=== PATIENT | female | born 1945 | race Caucasian/White ===

== ENCOUNTER → 2016-07-04 | Outpatient (CLI) | payer MEDICARE ==
[~2016-07-04] MED LIST: /ZIAC5TA OR; ACET500C; ACIPHEX OR; ASPI81TA3; ASPI81TA85 PO; BONIVA OR; CALC12502; CALCCHW12 OR; CIPR500T19 OR; FEMARA OR; FISH100049 PO; FLAG500T OR; HYDR12.55 PO; LISI-542 PO; LOPI600T OR; METF500T4 OR; PERC5TAB6 PO; THERGRAN; VENL75TA2 OR; ZOCO40TA OR; calcium
--- NOTE | 2016-07-04 16:09 | REP ---
RIGHT BREAST MAMMOGRAM: Right breast mammogram performed in the MLO and CC projections. The patient has a history of left breast cancer and mastectomy. There is a family history of breast cancer in a maternal aunt. Scattered fibroglandular tissue is unchanged in the right breast. There is no new mass or architectural distortion. No new clustered microcalcifications are seen. IMPRESSION: ACR 1 negative mammogram right breast in this patient status post left mastectomy. Suggest followup mammogram in one year. BI-RADS/ACR category 1 mammogram. Negative. Routine annual screening mammography (for women over age 40). This mammogram was interpreted with the aid of an FDA-approved computer-aided detection system. The patient states she/he had a clinical breast exam in 04/2016. The patient letter being requested is M1
== END ==
LOC: M WHC 09:53
PROVIDERS: ATTEND Internal Medicine Medical Oncology
DX: Z12.31 Encounter for screening mammogram for malignant neoplasm of breast (principal); Z85.3 Personal history of malignant neoplasm of breast; Z08 Encounter for follow-up examination after completed treatment for malignant neoplasm

== ENCOUNTER → 2017-04-19 | Outpatient (CLI) | payer MEDICARE ==
[~2017-04-19] MED LIST changes: +GASTROGRAFIN SOLUTION 30ML (Q9963) As Ordered ONE; +ISOVUE-370 76% 100ML VIAL (Q9967) As Ordered ONE; +PERC5TAB12 PO; -PERC5TAB6 PO
--- NOTE | 2017-04-19 12:49 | REP ---
CT CHEST WITH IV CONTRAST: TECHNIQUE: Axial contrast enhanced images from the thoracic inlet to the upper abdomen using 100 mL Isovue 370 intravenous contrast material with multiplanar reformations. The lungs show no suspicious nodular opacity or area of consolidation. The patient has had a prior left mastectomy. There are multiple metallic clips in the left axillary region. No chest wall mass is seen. There is no mediastinal, hilar or chest wall lymphadenopathy. There is no pleural or pericardial effusion. There is no thoracic aortic aneurysm or dissection. The heart is normal in size. There is a small hiatal hernia. There are degenerative changes of the spine without compression fracture or definite bone lesion. Incidental note is made of a 5 mm nodule in the left lobe of the thyroid, of doubtful significance. IMPRESSION: No evidence of mass or adenopathy. Status post left mastectomy. Signed by Sarmad Mendes MD 04/19/2017 05:35 P
--- NOTE | 2017-04-19 13:43 | REP ---
CT ABDOMEN AND PELVIS WITH AND WITHOUT CONTRAST: TECHNIQUE: Axial noncontrast images through the abdomen followed by contrast-enhanced images through the abdomen and pelvis using 100 mL Isovue 370 intravenous contrast material, with coronal and sagittal reformations. There is a small hiatal hernia. Liver demonstrates no evidence of enhancing mass. Spleen, adrenals, pancreas, and kidneys appear normal. Several subcentimeter gallstones are seen in the dependent portion of the gallbladder without evidence of gallbladder wall edema. There is no abdominal aortic aneurysm with mild scattered atherosclerotic calcifications noted. There is on adenopathy. There is no free air or free fluid. There is no bowel wall thickening. There is no evidence of pelvic mass. There is sigmoid diverticulosis without acute diverticulitis. Urinary bladder is mildly distended and grossly unremarkable. There are degenerative changes of the spine. No bone lesions are seen of the visualized osseous structures. IMPRESSION: Small hiatal hernia. Several subcentimeter gallstones in the gallbladder. Sigmoid diverticulosis. No acute abnormality. No adenopathy or mass. No evidence of bone lesion. Signed by Sarmad Mendes MD 04/19/2017 05:35 P
--- NOTE | 2017-04-19 13:57 | REP ---
WHOLE BODY BONE SCAN: Following the intravenous administration of 20.2 mCi of technetium-99m MDP, patient's whole body is imaged in the anterior and posterior projections with additional oblique images of the thoracic and pelvic regions performed as well as lateral views of the calvarium, knees and feet. There is on compelling scintigraphic evidence of osseous metastases. Scattered arthritic uptake is visualized in the wrists, knees, and feet. Photopenic area in the region of the left knee is compatible with a metallic prosthesis. There is arthritic uptake of a mild degree in various portions of the spine. There is arthritic uptake at the sternoclavicular joints. Renal and bladder activity are seen. IMPRESSION: Scattered arthritic uptake without compelling scintigraphic evidence of osseous metastases. Signed by Sarmad Mendes MD 04/19/2017 05:35 P
== END ==
LOC: M RAD 10:27
PROVIDERS: ATTEND Nurse Practitioner Family
DX: C50.919 Malignant neoplasm of unspecified site of unspecified female breast (principal); M85.80 Other specified disorders of bone density and structure, unspecified site
CPT/HCPCS: 71260; 74178; 78306; A9503; Q9963; Q9967

== ENCOUNTER → 2017-05-21 | Outpatient (CLI) | payer MEDICARE ==
[~2017-05-21] MED LIST changes: -GASTROGRAFIN SOLUTION 30ML (Q9963) As Ordered ONE; -ISOVUE-370 76% 100ML VIAL (Q9967) As Ordered ONE
--- NOTE | 2017-05-21 16:10 | REP ---
Clinical: Cough. Comparison: 03/01/2007 . Technique: PA and lateral. Findings: The mediastinum and cardiac silhouette are stable. Chronic dextroconvex scoliosis is again appreciated and unchanged. Lung carrasquillo demonstrate chronic stable changes without acute consolidation, effusion, or pneumothorax. Evidence of prior left axillary node dissection. Old healed left rib fracture. Impression: 1. No acute cardiopulmonary process. Signed by Ervin Francis MD 05/21/2017 04:02 P
== END ==
LOC: M RAD 15:02
PROVIDERS: ATTEND Internal Medicine
DX: R05 Cough (principal)

== ENCOUNTER → 2017-07-05 | Outpatient (CLI) | payer MEDICARE | LOC: M WHC 10:46 | DX: Z12.31 Encounter for screening mammogram for malignant neoplasm of breast (principal); Z85.3 Personal history of malignant neoplasm of breast; Z08 Encounter for follow-up examination after completed treatment for malignant neoplasm | CPT/HCPCS: 77067 ==

== ENCOUNTER → 2018-03-19 | Outpatient (CLI) | payer MEDICARE | LOC: M RAD 10:20 | DX: M54.16 Radiculopathy, lumbar region (principal) | CPT/HCPCS: 72148 ==

== ENCOUNTER 2018-04-15 07:56 | Day surgery (SDC) | payer MEDICARE ==
[2018-04-15] MEDS: NS 1,000 ML IV (06:00)
[2018-04-15] MEDS ORDERED: PROPOFOL 200 MG/20 ML VIAL As Ordered ×2 (08:41)
[2018-04-15] MEDS ORDERED: LIDOCAINE 2% INJ 100 MG/5 ML SDV (FOR ANES.) As Ordered (08:41)
== END 2018-04-15 10:25 | disposition home or self-care (01) ==
LOC: M OPP 07:56
DX: Z12.11 Encounter for screening for malignant neoplasm of colon (principal); Z86.010 Personal history of colon polyps; K64.0 First degree hemorrhoids; K57.30 Diverticulosis of large intestine without perforation or abscess without bleeding; I10 Essential (primary) hypertension; E78.5 Hyperlipidemia, unspecified; E11.9 Type 2 diabetes mellitus without complications; K21.9 Gastro-esophageal reflux disease without esophagitis; R12 Heartburn; M19.90 Unspecified osteoarthritis, unspecified site; M85.80 Other specified disorders of bone density and structure, unspecified site; G25.81 Restless legs syndrome; G47.30 Sleep apnea, unspecified; R06.83 Snoring; Z85.3 Personal history of malignant neoplasm of breast; Z92.21 Personal history of antineoplastic chemotherapy; Z90.12 Acquired absence of left breast and nipple; Z87.09 Personal history of other diseases of the respiratory system; Z96.651 Presence of right artificial knee joint; Z87.891 Personal history of nicotine dependence; Z88.0 Allergy status to penicillin; Z88.2 Allergy status to sulfonamides; Z79.82 Long term (current) use of aspirin; Z79.899 Other long term (current) drug therapy
CPT/HCPCS: G0105

== ENCOUNTER → 2018-05-03 | Outpatient (CLI) | payer MEDICARE ==
[~2018-05-03] MED LIST changes: -/ZIAC5TA OR; -ACET500C; -ACIPHEX OR; -ASPI81TA3; -ASPI81TA85 PO; -BONIVA OR; -CALC12502; -CALCCHW12 OR; -CIPR500T19 OR; -FEMARA OR; -FISH100049 PO; -FLAG500T OR; -HYDR12.55 PO; +ISOVUE-370 76% 100ML VIAL (Q9967) As Ordered; -LISI-542 PO; -LOPI600T OR; -METF500T4 OR; -PERC5TAB12 PO; -THERGRAN; -VENL75TA2 OR; -ZOCO40TA OR; -calcium
== END ==
LOC: M RAD 09:54
DX: R05 Cough (principal); Z85.3 Personal history of malignant neoplasm of breast
CPT/HCPCS: Q9967

== ENCOUNTER → 2018-07-08 | Outpatient (CLI) | payer MEDICARE ==
[~2018-07-08] MED LIST changes: +/ZIAC5TA OR; +ACET500C; +ACIPHEX OR; +ASPI81TA3; +ASPI81TA85 PO; +BONIVA OR; +CALC12502; +CALCCHW12 OR; +CIPR500T19 OR; +FEMARA OR; +FISH100049 PO; +FLAG500T OR; +HYDR12.55 PO; -ISOVUE-370 76% 100ML VIAL (Q9967) As Ordered; +LISI-542 PO; +LOPI600T OR; +METF500T4 OR; +PERC5TAB12 PO; +SINE25TA5 PO; +STOO100C PO; +THERGRAN; +VENL75TA2 OR; +ZOCO40TA OR; +calcium
--- NOTE | 2018-07-08 14:00 | REPMRS ---
Patient History The patient states she had a clinical breast exam in 05/19 Family history of breast cancer at age 72 in maternal aunt. Malignant mastectomy of the left breast, 2001. Chemotherapy. Took hormonal contraceptives for 1 year. Took tamoxifen for 5 years. Took unspecified hormones for 28 years. Digital Woman Screen Mammo: July 08, 2018 - Exam #: [id number] Bilateral CC and MLO view(s) were taken. Technologist: Adrianne Red, Technologist Prior study comparison: July 05, 2017, digital woman screen mammo performed at [facility] [employer] [facility]. July 04, 2016, digital woman screen mammo performed at [facility] [facility]. July 01, 2015, digital woman screen mammo performed at [facility] [employer] [facility]. FINDINGS: There are scattered fibroglandular densities. There has been no change in the appearance of the right breast parenchyma in the interval since the prior examination. No mass, architectural distortion, or microcalcific cluster has developed. No suspicious finding. 3-D tomosynthesis shows no additional findings. Assessment: BI-RADS/ACR category 2 mammogram. Benign finding(s). Recommendation Routine screening mammogram of the right breast in 1 year. This mammogram was interpreted with the aid of an FDA-approved computer-aided dectection system. Electronically Signed By: Elijah Hackett MD 07/08/18 1400
== END ==
LOC: M WHC 12:48
PROVIDERS: ATTEND Internal Medicine Medical Oncology
DX: Z12.31 Encounter for screening mammogram for malignant neoplasm of breast (principal); Z85.3 Personal history of malignant neoplasm of breast; Z90.12 Acquired absence of left breast and nipple; Z92.21 Personal history of antineoplastic chemotherapy; Z80.3 Family history of malignant neoplasm of breast

== ENCOUNTER → 2019-05-06 | Outpatient (REF) | payer MEDICARE ==
[~2019-05-06] MED LIST changes: -/ZIAC5TA OR; +MM S100C PO; -STOO100C PO; +ZIAC1TAB OR
[2019-05-06 12:11] LABS: BASO % 0.5 % (0.0-1.0); EOS # 0.2 10^3/uL (0.0-0.5); EOS % 4.5 % (0.0-3.0); HEMATOCRIT 44.9 % (36.0-47.0); HEMOGLOBIN 14.7 g/dl (12.0-15.5); LYMPH # 1.3 10^3/uL (1.5-5.0); LYMPH % 32.4 % (24.0-44.0); MEAN CORPUSCULAR HEMOGLOBIN 30.4 pg (27.0-33.0); MEAN CORPUSCULAR HGB CONC 32.7 g/dl (32.0-36.5); MONO # 0.3 10^3/uL (0.0-0.8); MONO % 7.5 % (0.0-5.0); NEUTROPHILS # 2.2 10^3/uL (1.5-8.5); NEUTROPHILS % 54.9 % (36.0-66.0); PLATELET COUNT, AUTOMATED 209 10^3/uL (150-450); RED BLOOD COUNT 4.83 10^6/uL (4.00-5.40)
[2019-05-06 12:39] LABS: ERYTHROCYTE SEDIMENTATION RATE 20 mm/hr (0-30)
[2019-05-08 00:06] LABS: Lyme Disease IgG/IgM Antibodie <0.91 ISR (0.00-0.90); Lyme Disease IgM Ab Quantitati <0.80 index (0.00-0.79)
== END ==
LOC: M LABDRAW1 11:48
PROVIDERS: ATTEND Orthopaedic Surgery
DX: M16.11 Unilateral primary osteoarthritis, right hip (principal); Z79.899 Other long term (current) drug therapy

== ENCOUNTER → 2019-07-03 | Outpatient (CLI) | payer MEDICARE ==
[2019-07-03 09:31] LABS: HEMATOCRIT 43.6 % (36.0-47.0); HEMOGLOBIN 14.6 g/dl (12.0-15.5); MEAN CORPUSCULAR HEMOGLOBIN 31.1 pg (27.0-33.0); MEAN CORPUSCULAR HGB CONC 33.5 g/dl (32.0-36.5); PLATELET COUNT, AUTOMATED 183 10^3/uL (150-450); RED BLOOD COUNT 4.69 10^6/uL (4.00-5.40); WHITE BLOOD COUNT 4.8 10^3/uL (4.0-10.0)
[2019-07-03 09:42] LABS: INR 1.1; PROTHROMBIN TIME 13.9 SECONDS (11.8-14.0)
--- NOTE | 2019-07-03 09:56 | REP ---
Two-view chest: 07/03/2019. Indication: Preoperative assessment. Comparison: CT chest dated 05/03/2018 and plain film chest dated 05/21/2017. Findings: There is no air space consolidation, pleural effusion or pneumothorax. Left axillary surgical clips are noted. Scoliosis and degenerative sequelae of the thoracic spine are present. The cardiomediastinal silhouette is unremarkable. Glenohumeral degenerative sequelae are present more pronounced on the right. Chronic left sixth rib fracture is present. Impression: No acute cardiopulmonary process. Electronically Signed by Moses Heller DO 07/03/2019 09:47 A
[2019-07-03 10:07] LABS: ALBUMIN 4.2 GM/DL (3.2-5.2); ALT/SGPT 60 U/L (12-78); BILIRUBIN,TOTAL 0.7 MG/DL (0.2-1.0); BLOOD UREA NITROGEN 13 MG/DL (7-18); CALCIUM LEVEL 9.2 MG/DL (8.8-10.2); CARBON DIOXIDE LEVEL 27 MEQ/L (21-32); CHLORIDE LEVEL 104 MEQ/L (98-107); CREATININE FOR GFR 0.61 MG/DL (0.55-1.30); GLOMERULAR FILTRATION RATE > 60.0 (>39); GLUCOSE, FASTING 140 MG/DL (70-100); POTASSIUM SERUM 4.4 MEQ/L (3.5-5.1); SODIUM LEVEL 139 MEQ/L (136-145); TOTAL PROTEIN 7.7 GM/DL (6.4-8.2)
[2019-07-03 10:20] LABS: ERYTHROCYTE SEDIMENTATION RATE 17 mm/hr (0-30)
--- NOTE | 2019-07-03 20:38 | ECGEPIP ---
[facility] Test Date: 2019-07-03 Pat Name: JAMES KOCH Department: Room: - Gender: Female Proced Tech: KARRI : 1945 Requested By: Rachel Gutierrez @ [facility] Order Number: [id number] Reading MD: Gui Walker Measurements Intervals [place] Rate: 77 P: 61 WY: 177 QRS: -4 QRSD: 150 T: 28 QT: 415 QTc: 471 Interpretive Statements Normal sinus rhythm Right bundle branch block No significant change when compared to prior tracing of 07/30/2014 Electronically Signed on 07-03-2019 20:38:01 EST by Gui Walker
== END ==
LOC: M LAB 08:50
PROVIDERS: ATTEND Orthopaedic Surgery
DX: Z01.818 Encounter for other preprocedural examination (principal); M16.11 Unilateral primary osteoarthritis, right hip; I45.10 Unspecified right bundle-branch block; Z88.0 Allergy status to penicillin; Z88.2 Allergy status to sulfonamides

== ENCOUNTER 2019-07-18 05:53 | Inpatient (IN) | payer MEDICARE ==
--- NOTE | 2019-07-14 16:05 | HPE ---
DATE OF ADMISSION: 07/18/2019 HISTORY OF PRESENT ILLNESS: Mrs. Douglas is a pleasant 74-year-old female with continuing symptomatic right hip osteoarthritis. She has consented for a right total hip arthroplasty per Dr. Matt Orellana. Medical optimization per Dr. Deleon. X-rays are consistent with advanced osteoarthritis. ALLERGIES: 1. PENICILLIN in childhood caused hives. 2. SULFA DRUGS. MEDICATION LIST: Includes: - gabapentin 100 mg - tizanidine HCl 2 mg - Crestor 5 mg - lisinopril 5 mg - carbidopa levodopa 25-100 mg - Zyrtec allergy 10 mg - benazepril HCl/hydrochlorothiazide 10-12.5 mg MEDICAL PROBLEM LIST: 1. Essential hypertension. 2. Hypercholesteremia. 3. Gastroesophageal reflux disease. 4. Type 2 diabetes. 5. Myelitis. 6. Obstructive sleep apnea. PAST SURGICAL HISTORY: Total hysterectomy, mastectomy, knee replacement, carpal tunnel release, right shoulder rotator cuff repair, right hand top wrist cyst removed, meniscal repair in 2008, carpal tunnel surgery left and right 2010. FAMILY HISTORY: Heart disease, arthritis, hypertension, hypercholesteremia, thyroid disease. SOCIAL HISTORY: Former smoker. Rarely consumes alcohol. Denies illicit drugs. REVIEW OF SYSTEMS: Denies chest pain, shortness of breath, dyspnea on exertion, fever, chills, malaise, upper respiratory or urinary tract symptoms. LABORATORY DATA: Results from 05/06/2019 by [facility]: Monocyte percentage and eosinophil percentage 7.5 and 4.5 respectively. Lymph number 1.3. As of 07/04/2019, glucose fasting 140, AST/SGOT 45. Alkaline phosphatase 121. Chest x-ray result [facility] service date 07/03/2019: No acute cardiopulmonary process as read by Dr. Heller. EKG as read by Dr. Gui Walker: Normal sinus rhythm, right bundle branch block. No significant change from prior tracing dated 08/10/2014. That is the comparison study. PHYSICAL EXAMINATION: She is a pleasant well-developed, well-nourished, overweight female in no acute distress, alert and oriented times three. Mood and affect are appropriate. Height is 52 inches, weight 190.2, temperature 98.4, blood pressure 126/78, pulse 66, respirations 16. She is ambulating without overt antalgia, assistance or favoring. Right hip range of motion is limited and irritable particularly in internal range of motion. Bowels are soft, nontender times four. No mass. Chest rises symmetrically. Regular rate and rhythm. Lungs: Clear. Neck: Supple. Negative jugular venous distention (JVD) or bruits. Normocephalic. IMPRESSION: 1. Symptomatic right hip osteoarthritis. 2. The patient consented for a right total hip arthroplasty per Dr. Matt Orellana. 3. Medical optimization per Dr. Deleon. 4. On-call to operating room (OR) 2 grams IV Kefzol in OR. 5. Sequential compression device (SCD) and thromboembolic-deterrent stockings (TEDS) in OR.
[~2019-07-18] VITALS: Ht 157.5 cm; Wt 87.0 kg
[2019-07-18] VITALS (7 sets, daily range): BP systolic 101–117; BP diastolic 61–64
[~2019-07-18 05:53] MED LIST changes: +ACET-897 PO
[2019-07-18] MEDS ORDERED: LIDOCAINE 1% MDV 20ML VIAL SQ PRN (06:00)
[2019-07-18] MEDS ORDERED: ACETAMINOPHEN 500 MG TAB PO ONE (06:00)
[2019-07-18] MEDS ORDERED: VANCOMYCIN HCL 1,000 MG, VIAL MATE ADAPTER 1 EACH in D5W 250 ML IV ONE (06:00)
[2019-07-18] MEDS ORDERED: LR 1,000 ML IV ONE (06:00)
[2019-07-18] MEDS ORDERED: EPINEPHrine INJ 1 MG/ML 1ML VIAL As Ordered ONE (06:51)
[2019-07-18] MEDS ORDERED: CLINDAMYCIN INJ 900MG/6ML VIAL As Ordered ONE (06:52)
[2019-07-18] MEDS ORDERED: CHLOROPROCAINE 2 % INJ PRES.FREE 20 ML VIAL (J2400) As Ordered ONE ×2 (06:56→08:15)
[2019-07-18] MEDS ORDERED: ONDANSETRON 4MG/2ML VIAL (J2405) As Ordered ONE (06:56)
[2019-07-18] MEDS ORDERED: fentaNYL 100 MCG/2 ML INJECTION (J3010) As Ordered ONE ×2 (06:56→07:04)
[2019-07-18] MEDS ORDERED: propofoL 500 MG/50 ML VIAL As Ordered ONE (07:04)
[2019-07-18] MEDS ORDERED: LIDOCAINE 2% INJ 100 MG/5 ML SDV (FOR ANES.) As Ordered ONE (07:04)
[2019-07-18] MEDS ORDERED: ROCURONIUM BROMIDE 50 MG/5 ML VIAL As Ordered ONE (07:04)
[2019-07-18] MEDS ORDERED: BUPIVACAINE HCL 0.5% 30 ML VIAL As Ordered ONE (08:14)
[2019-07-18] MEDS ORDERED: dexameTHASONE 4 MG/ML 1ML VIAL (J1100) As Ordered ONE (08:14)
[2019-07-18] MEDS ORDERED: ePHEDrine SULFATE 25 MG/5 ML(5MG/ML) SYRINGE As Ordered ONE (08:15)
[2019-07-18] MEDS ORDERED: PHENYLephrine HCL 500 MCG/5 ML (100MCG/ML) SYRINGE (J2370) As Ordered ONE (08:15)
[2019-07-18] MEDS ORDERED: ONDANSETRON 4MG/2ML VIAL (J2405) IV PRN ×2 (10:15→10:30)
[2019-07-18] MEDS ORDERED: oxyCODONE 5MG TAB PO PRN (10:30)
[2019-07-18] MEDS ORDERED: fentaNYL 100 MCG/2 ML INJECTION (J3010) IV PRN (10:30)
[2019-07-18] MEDS ORDERED: MORPHINE 2 MG/ML 1ML VIAL (J2270) IV PRN (10:30)
[2019-07-18] MEDS ORDERED: METOCLOPRAMIDE INJ 10MG/2ML VIAL (J2765) IV PRN (10:30)
[2019-07-18] MEDS ORDERED: LR 1,000 ML IV SCH (10:30)
--- NOTE | 2019-07-18 11:04 | REP ---
RIGHT HIP, TWO VIEWS: Two views of the right hip performed. A total hip prosthesis is in good position. Osseous structures are intact and well aligned. Metallic skin loren are seen laterally. Electronically Signed by Sarmad Mendes MD 07/23/2019 09:38 A
[2019-07-18] MEDS ORDERED: HYDROMORPHONE HCL 0.5 MG/ 0.5 ML SYRINGE (J1170 PER 1) IV PRN (13:00)
[2019-07-18] MEDS: HYDROMORPHONE HCL 0.5 MG/ 0.5 ML SYRINGE (J1170 PER 1) IV PRN ×2 (13:20→20:33)
[2019-07-18] MEDS: LR 1,000 ML IV SCH ×2 (13:36→23:20)
--- NOTE | 2019-07-18 13:58 | CR.PDOC ---
General Date of Consultation: Jul 18, 2019 Consultation CHIEF COMPLAINT: R. hip pain HISTORY OF PRESENT ILLNESS: Patient is 74F with PMH R. hip OA, HTN, DM Type, RLS and BORIS admitted for R. hip arthroplasty with orthopedic surgery. Patient reported having pain in her R. hip for about 2 years that had failed conservative management now admitted for surgery. She reported having multiple orthopedic surgeries in the past and has had pain in the back/leg and hips for a long time before figuring out that the problem lies in her R. hip. She currently appears comfortable, reports some mild pain in her R. hip after getting pain medications otherwise denies any other complaints including chest pain, SOB, fever, chills, nausea, vomiting. PAST MEDICAL HISTORY: Refer to HPI PAST SURGICAL HISTORY: Hysterectomy Left mastectomy Left knee replacement Bilateral carpal tunnel release SOCIAL HISTORY: Former smoker. Social alcohol use and denies any drug use. FAMILY HISTORY: Father- CAD Mother- HTN, OA ALLERGIES: Please see below. REVIEW OF SYSTEMS: 10 point review of system negative except as stated in HPI HOME MEDICATIONS: Please see below. PHYSICAL EXAMINATION: General: Alert Eyes: Normal sclera, EOMI HENT: Atraumatic Cardiovascular: Normal rate Pulmonary: Clear to auscultation b/l, no wheezing GI: Soft, nontender, nondistended Skin: Warm and dry MSK: R. hip tenderness with overlying bandage c/d/i. Neuro: CN grossly intact. No focal deficits. Psych: oriented x 3 LABORATORY DATA: See below. IMAGING: R. hip XR- A total hip prosthesis is in good position. Osseous structures are intact and well aligned. Metallic skin loren are seen laterally. MICROBIOLOGY: Please see below. ASSESSMENT AND PLAN: 1. R. hip pain s/p arthroplasty - Persistent pain not improve with conservative measures. - c/w pain control. Orthopedic surgery following. - PT eval and treat. - Routine post op care. 2. DM - has been off of metformin. - Will monitor ACHS blood sugar with sliding scale coverage. - Patient fairly adverse to insulin, will monitor today and possibly d/c in AM if no significant spike in BS noted. - Consistent carbohydrate diet. 3. HTN - resume home meds. 4. BORIS - Not on home CPAP. 5. RLS - c/w sinemet Vital Signs/I&O Vital Signs Date Time Temp Pulse Resp B/P (MAP) Pulse Ox O2 Delivery O2 Flow Rate FiO2 07/18/19 13:30 18 07/18/19 13:20 Room Air 07/18/19 11:14 97.6 74 117/62 (80) 98 Laboratory Data Labs 24H Laboratory Tests 2 07/18/19 07:00: Bedside Glucose (Misc Panel) 144H 07/18/19 09:59: Bedside Glucose (Misc Panel) 154H Allergies Coded Allergies: Penicillins (Verified Allergy, Intermediate, Hives, 07/18/19) Sulfa (Sulfonamide Antibiotics) (Verified Allergy, Intermediate, Hives, 07/18/19) Home Medications Scheduled Carbidopa/Levodopa (Sinemet 25-100 mg Tablet) 1 Tab Tab, 1 TAB PO QHS, (Reported) Hydrochlorothiazide (Hydrochlorothiazide) 12.5 Mg Tab, 12.5 MG PO DAILY, (Reported) Lisinopril (Lisinopril) 5 Mg Tab, 5 MG PO DAILY, (Reported) Scheduled PRN Acetaminophen (Tylenol Extra Strength) 500 Mg Tablet, 1,000 MG PO TIDP PRN for PAIN, (Reported) IGLESIA WEBB MD Jul 18, 2019 13:58
[2019-07-18] MEDS ORDERED: PERCOCET 5MG/325MG TAB PO PRN (14:15)
[2019-07-18] MEDS: PERCOCET 5MG/325MG TAB PO PRN ×2 (14:30→21:17)
[2019-07-18] MEDS ORDERED: GLUCOSE 4 GM CHEW TABLET PO PRN (14:45)
[2019-07-18] MEDS ORDERED: DEXTROSE 50% 50 ML SYRINGE IV PRN (14:45)
[2019-07-18] MEDS ORDERED: GLUCAGON FOR INJ 1 MG VIAL (J1610) SC PRN (14:45)
[2019-07-18] MEDS: hydroCHLOROthiazide 12.5 MG CAPSULE PO SCH (15:23)
[2019-07-18] MEDS: lisinopriL 5 MG TAB PO SCH (15:23)
[2019-07-18] MEDS: VANCOMYCIN HCL 1,000 MG, VIAL MATE ADAPTER 1 EACH in D5W 250 ML IV SCH (17:51)
[2019-07-18] MEDS: HumaLOG INSULIN (NovoLOG) PER UNIT SC SCH (17:52)
--- NOTE | 2019-07-18 19:36 | RO ---
DATE OF PROCEDURE: 07/18/2019 PREPROCEDURE DIAGNOSIS: Right hip degenerative arthritis. POSTPROCEDURE DIAGNOSIS: Right hip degenerative arthritis. PROCEDURE: Right total hip arthroplasty using a size 4 Hoke stem with a 1.5 neck, 32 mm ball with a 48 mm cup and a 32 mm neutral polyethylene liner. SURGEON: Rachel Orellana ABRASIVE WORKER: Mr. Adiel Manriquez ANESTHESIA: Spinal. COMPLICATIONS: None. SPECIMENS: Femoral head. ESTIMATED BLOOD LOSS: 200 mL. DESCRIPTION OF PROCEDURE: Antibiotics were given intravenously preoperatively, successful spinal anesthetic was induced. She was placed in the lateral decubitus position with a [place] hip positioner utilized, down leg well padded, especially the peroneal nerve, axillary roll utilized. Her right hip area was then carefully prepped and draped in the usual sterile fashion and after appropriate time out, a longitudinal incision was made for a direct anterolateral approach to the hip. Bovie cautery was used to coagulate crossing vessels down to the tensor fascia, which was then divided in line with the skin incision. We split the gluteus medius, anterior one-third, posterior two-third junction, carefully dissected down through the underlying gluteus minimus and anterior capsule, carefully dissecting anteriorly until we could dislocate the hip anteriorly. Piriformis fossa was identified, starter reamer placed, followed by the canal finding reamer, then the lateralizing reamer. Then, we reamed up to a size 4 and up to a size 5. Femoral neck osteotomy was performed using the femoral neck template guide, and then we began broaching. The broaching stopped at 4; it was nice and tight against the medial calcar, did not feel a 5 could be placed. We then exposed the acetabulum. We did a labral excision 360 degrees. Began reaming, starting at 45, advanced up to 47, 48 trial actually fit nicely; she had good bleeding bone, we were down to the medial teardrop. We copiously irrigated, the trial fit nicely at 48; thus, I went for the 48 mm cup. It was placed using the extramedullary guide to estimate our version in abduction, it fit nicely. Central hole eliminator was placed. We placed the polyethylene, made sure it was seated properly, and then exposed the proximal femur once again, placed the broach once again after irrigating copiously down the femoral canal. The +1.5 neck with a 32 ball was used to trial, and she had excellent stability with flexion internal rotation and extension external rotation, and minimal soft tissue telescoping. Thus, at this point, I did not think any other size was needed. I removed the trial components, copiously irrigated out the femoral canal, placed the real #4 Hoke stem, dried the trunnion, placed the 32 x 1.5 ball, and then reduced the hip. We copiously irrigated again and then closed the anterior hip capsule and gluteus minimus back anatomically with interrupted #1 PDS sutures, gluteus medius was closed back anatomically with interrupted #1 PDS sutures, tensor fascia was closed with a combination of #1 PDS sutures and a running #1 single armed Stratafix, irrigating between layers. A second suture was placed in the deep soft tissues because of the depth of the soft tissue envelope. She was quite morbidly obese. We then closed the deep subdermal tissues with interrupted #2-0 PDS sutures, skin was closed with loren, covered by an Optifoam and then she was turned supine and transferred to the recovery room in stable condition. There were no intraoperative complications. Mr. Adiel Manriquez was critical to the success of this difficult procedure by helping with appropriate soft tissue retraction, helped to position the patient, helped to dislocate and relocate the hip several times throughout the surgery, helped to close the wound, prepare the patient for surgery amongst many other tasks to allow me to perform the operation smoothly, efficiently and safely.
[2019-07-18] MEDS ORDERED: HumaLOG INSULIN (NovoLOG) PER UNIT SC SCH (21:00)
[2019-07-18] MEDS ORDERED: SINEMET 25-100 MG TAB PO SCH (21:00)
[2019-07-19] MEDS: PERCOCET 5MG/325MG TAB PO PRN ×3 (01:20→10:37)
[2019-07-19 02:15] VITALS: BP 98/59
[2019-07-19] MEDS ORDERED: PERC5TAB12 PO (06:19)
[2019-07-19] MEDS ORDERED: XARE10TA PO (06:19)
[2019-07-19] MEDS: VANCOMYCIN HCL 1,000 MG, VIAL MATE ADAPTER 1 EACH in D5W 250 ML IV SCH (06:28)
[2019-07-19 06:37] VITALS: BP 107/67
[2019-07-19 06:39] LABS: HEMATOCRIT 37.2 % (36.0-47.0); HEMOGLOBIN 12.4 g/dl (12.0-15.5); MEAN CORPUSCULAR HEMOGLOBIN 31.3 pg (27.0-33.0); MEAN CORPUSCULAR HGB CONC 33.3 g/dl (32.0-36.5); MEAN CORPUSCULAR VOLUME 93.9 fl (80.0-96.0); PLATELET COUNT, AUTOMATED 175 10^3/uL (150-450); RED BLOOD COUNT 3.96 10^6/uL (4.00-5.40); WHITE BLOOD COUNT 8.8 10^3/uL (4.0-10.0)
[2019-07-19 06:53] LABS: INR 1.1; PROTHROMBIN TIME 13.9 SECONDS (11.8-14.0)
[2019-07-19] MEDS: hydroCHLOROthiazide 12.5 MG CAPSULE PO SCH (08:31)
[2019-07-19 08:32] VITALS: BP 118/68
[2019-07-19] MEDS: HumaLOG INSULIN (NovoLOG) PER UNIT SC SCH (08:32)
[2019-07-19] MEDS: lisinopriL 5 MG TAB PO SCH (09:00)
[2019-07-19] MEDS ORDERED: MOM 30ML SUSPENSION UDC PO SCH (09:00)
[2019-07-19] MEDS ORDERED: MIRALAX *UNIT DOSE* 17GM PACKET PO SCH (09:00)
--- NOTE | 2019-07-19 10:13 | IPNPDOC ---
Date Seen The patient was seen on 07/19/19. Progress Note SUBJECTIVE: Patient found lying comfortably in bed. States that she does not have much pain until she moves around. Denies any other complaints apart from pain in her R. hip with movement. PT assess for discharge today. OBJECTIVE PHYSICAL EXAMINATION: VITAL SIGNS: Please see below. General: Alert Eyes: Normal sclera, EOMI HENT: Atraumatic Cardiovascular: Normal rate Pulmonary: Clear to auscultation b/l, no wheezing GI: Soft, nontender, nondistended Skin: Warm and dry MSK: R. hip tenderness with overlying bandage c/d/i. Neuro: CN grossly intact. No focal deficits. Psych: oriented x 3 LABORATORY DATA, IMAGING STUDIES, MICROBIOLOGY: Please see below. ASSESSMENT AND PLAN: 1. R. hip pain s/p arthroplasty - Persistent pain not improve with conservative measures. - c/w pain control. Orthopedic surgery following. - PT eval and treat. Assess for discharge today. 2. DM - has been off of metformin. - ACHS coverage for hyperglycemia if needed. - Consistent carbohydrate diet. 3. HTN - resume home meds. 4. BORIS - Not on home CPAP. 5. RLS - c/w sinemet VS, I&O, 24H, Fishbone Vital Signs/I&O Vital Signs Date Time Temp Pulse Resp B/P (MAP) Pulse Ox O2 Delivery O2 Flow Rate FiO2 07/19/19 08:32 75 15 118/68 98 Room Air 07/19/19 06:37 97.5 I&O- Last 24 Hours up to 6 AM 07/19/19 06:00 Intake Total 4666 ml Output Total 3050 ml Balance 1616 ml Laboratory Data 24H LABS Laboratory Tests 2 07/18/19 17:09: Bedside Glucose (Misc Panel) 167H 07/18/19 20:31: Bedside Glucose (Misc Panel) 161H 07/19/19 06:19: Nucleated Red Blood Cells % (auto) 0.0, Prothrombin Time 13.9, Prothromb Time International Ratio 1.10 07/19/19 07:41: Bedside Glucose (Misc Panel) 159H CBC/BMP Laboratory Tests 07/19/19 06:19 IGLESIA WEBB MD Jul 19, 2019 10:13
[2019-07-19] MEDS ORDERED: RIVAROXABAN 10 MG TAB (XARELTO) PO ONE (18:00)
[2019-07-19] MEDS ORDERED: RIVAROXABAN 10 MG TAB (XARELTO) PO SCH (18:00)
--- NOTE | 2019-07-22 14:54 | DSES ---
DATE OF ADMISSION: 07/18/2019 DATE OF DISCHARGE: 07/19/2019 ATTENDING PHYSICIAN: Dr. Matt Orellana ADMISSION DIAGNOSIS: Right hip degenerative arthritis. OTHER DIAGNOSES: Hypertension. Hyperlipidemia. Gastroesophageal reflux disease. Diabetes. Obstructive sleep apnea. DISCHARGE DIAGNOSIS: Right hip degenerative arthritis status post right total hip arthroplasty. HISTORY: The patient is a 74-year-old female that had progressively worsening right hip pain and stiffness. She failed to improve with conservative measures. She continued to have symptoms with weightbearing activities and activities of daily living. She consented for an elective right total hip arthroplasty with Dr. Orellana for her continued symptoms. OPERATION PERFORMED: Right total hip arthroplasty. HOSPITAL COURSE: The patient underwent a right total hip arthroplasty under spinal anesthesia which was uneventful. Her hospital course was without complication and she was up with physical therapy per their protocol, weightbearing as tolerated on the right lower extremity. The patient was discharged on oral pain medications and will resume her preoperative medications and diet. The patient will use her thromboembolic deterrent stockings and take her anticoagulant postoperatively to prevent deep venous thrombosis. The patient will followup in our office in 12-14 days for wound check and staple removal. She is encouraged to contact our office sooner if there is any increase in pain, redness, drainage, numbness or tingling in the extremity, fever greater than 101 degrees or any other concerns. Please see medical record for additional details.
== END 2019-07-19 11:50 | disposition home or self-care (01) | DRG 470 ==
LOC: M OR 05:53 → M MS5PR 11:05
PROVIDERS: ADMIT Orthopaedic Surgery; ATTEND Orthopaedic Surgery
PROC: 0SR90JA Replacement of Right Hip Joint with Synthetic Substitute, Uncemented, Open Approach (ICD-10-PCS; principal; 2019-07-18 07:30)
DX: M16.11 Unilateral primary osteoarthritis, right hip (principal); I10 Essential (primary) hypertension; E11.9 Type 2 diabetes mellitus without complications; Z88.0 Allergy status to penicillin; Z88.2 Allergy status to sulfonamides; K21.9 Gastro-esophageal reflux disease without esophagitis; G47.33 Obstructive sleep apnea (adult) (pediatric); Z79.899 Other long term (current) drug therapy; E78.00 Pure hypercholesterolemia, unspecified; Z87.891 Personal history of nicotine dependence; I45.10 Unspecified right bundle-branch block; G25.81 Restless legs syndrome; Z96.651 Presence of right artificial knee joint

== ENCOUNTER → 2019-08-25 | Outpatient (CLI) | payer MEDICARE ==
[~2019-08-25] MED LIST changes: +XARE10TA PO
--- NOTE | 2019-08-25 14:00 | REPMRS ---
Patient History The patient states she has not had a clinical breast exam in over a year. Family history of breast cancer at age 70 in maternal aunt. Malignant mastectomy of the left breast, 2001. Chemotherapy. Took hormonal contraceptives for 1 year. Took tamoxifen for 5 years. Took unspecified hormones for 28 years. Digital Woman Screen Mammo: August 25, 2019 - Exam #: [id number] Bilateral CC and MLO view(s) were taken. Technologist: Ana Nava, Technologist Prior study comparison: July 08, 2018, bilateral digital woman screen mammo performed at [facility]. July 05, 2017, digital woman screen mammo performed at [facility]. July 04, 2016, digital woman screen mammo performed at [facility]. FINDINGS: There are scattered fibroglandular densities. There has been no change in the appearance of the right breast parenchyma in the interval since the prior examination. No mass, architectural distortion, or microcalcific grouping has developed. No suspicious finding. 3-D tomosynthesis shows no additional findings. Assessment: BI-RADS/ACR category 2 mammogram. Benign Findings. Recommendation Routine screening mammogram of the right breast in 1 year. This mammogram was interpreted with the aid of an FDA-approved computer-aided dectection system. Electronically Signed By: Elijah Hackett MD 08/25/19 [id number]
== END ==
LOC: M WHC 12:38
PROVIDERS: ATTEND Internal Medicine
DX: Z12.31 Encounter for screening mammogram for malignant neoplasm of breast (principal); Z90.12 Acquired absence of left breast and nipple; Z85.3 Personal history of malignant neoplasm of breast; Z92.21 Personal history of antineoplastic chemotherapy; Z92.29 Personal history of other drug therapy

== ENCOUNTER → 2020-08-26 | Outpatient (CLI) | payer MEDICARE ==
[~2020-08-26] MED LIST changes: -ASPI81TA85 PO; +ASPI81TA86 PO; -LISI-542 PO; +LISI-898 PO
--- NOTE | 2020-08-26 13:09 | REPMRS ---
Patient History The patient states she has not had a clinical breast exam in over a year. Family history of breast cancer at age 70 in maternal aunt. Malignant mastectomy of the left breast, 2001. Chemotherapy. Took hormonal contraceptives for 1 year. Took tamoxifen for 5 years. Took unspecified hormones for 28 years. Digital Woman Screen Mammo: August 26, 2020 - Exam #: [id number] Bilateral CC and MLO view(s) were taken. Technologist: RT Neo Prior study comparison: August 25, 2019, bilateral digital woman screen mammo performed at [facility]. July 08, 2018, bilateral digital woman screen mammo performed at [facility]. July 05, 2017, digital woman screen mammo performed at [facility]. FINDINGS: There are scattered fibroglandular densities. There has been no change in the appearance of the right breast parenchyma in the interval since the prior examination. No mass, architectural distortion, or microcalcific grouping has developed. No suspicious finding. 3-D tomosynthesis shows no additional findings. Assessment: BI-RADS/ACR category 2 mammogram. Benign Findings. Recommendation Routine screening mammogram of the right breast in 1 year. This mammogram was interpreted with the aid of an FDA-approved computer-aided dectection system. Electronically Signed By: Elijah Hackett MD 08/26/20 [id number]
== END ==
LOC: M WHC 12:12
PROVIDERS: ATTEND Internal Medicine
DX: Z12.31 Encounter for screening mammogram for malignant neoplasm of breast (principal); Z90.12 Acquired absence of left breast and nipple; Z92.21 Personal history of antineoplastic chemotherapy; Z85.3 Personal history of malignant neoplasm of breast

== ENCOUNTER → 2020-10-12 | Outpatient (CLI) | payer MEDICARE ==
[~2020-10-12] MED LIST changes: +CARB-89 PO; -SINE25TA5 PO
[2020-10-12 15:33] LABS: BASO % 0.8 % (0.0-1.0); EOS # 0.2 10^3/uL (0.0-0.5); EOS % 2.9 % (0.0-3.0); HEMATOCRIT 46.6 % (36.0-47.0); HEMOGLOBIN 15.2 g/dl (12.0-15.5); LYMPH # 1.6 10^3/uL (1.5-5.0); LYMPH % 31.1 % (24.0-44.0); MEAN CORPUSCULAR HEMOGLOBIN 30.3 pg (27.0-33.0); MEAN CORPUSCULAR HGB CONC 32.6 g/dl (32.0-36.5); MONO # 0.4 10^3/uL (0.0-0.8); MONO % 6.7 % (2.0-8.0); NEUTROPHILS % 58.1 % (36.0-66.0); PLATELET COUNT, AUTOMATED 178 10^3/uL (150-450); RED BLOOD COUNT 5.01 10^6/uL (4.00-5.40); WHITE BLOOD COUNT 5.2 10^3/uL (4.0-10.0)
[2020-10-12 15:36] LABS: C REACTIVE PROTEIN QUANTITATIV < 0.30 MG/DL (0.00-0.30); RHEUMATOID FACTOR QUANT < 10.0 IU/ML (<15.0)
[2020-10-12 15:58] LABS: ERYTHROCYTE SEDIMENTATION RATE 10 mm/hr (0-30)
== END ==
LOC: M PLALAB 12:33
PROVIDERS: ATTEND Physician Assistant
DX: Z47.1 Aftercare following joint replacement surgery (principal); Z79.899 Other long term (current) drug therapy

== ENCOUNTER → 2021-02-24 | Outpatient (REF) | payer MEDICARE ==
[2021-02-24 17:39] LABS: APPEARANCE, URINE CLEAR (CLEAR); BACTERIA, URINE AUTO NEGATIVE (NEGATIVE); BILIRUBIN, URINE AUTO NEGATIVE (NEGATIVE); BLOOD, URINE BLOOD NEGATIVE (NEGATIVE); COLOR, URINE STRAW (YELLOW); GLUCOSE, URINE (UA) AUTO NEGATIVE (NEGATIVE); KETONE, URINE AUTO NEGATIVE (NEGATIVE); LEUKOCYTE ESTERASE, URINE AUTO 1+ (NEGATIVE); NITRITE, URINE AUTO NEGATIVE (NEGATIVE); PROTEIN, URINE AUTO NEGATIVE (NEGATIVE); RBC, URINE AUTO 0 /HPF (0-3); SPECIFIC GRAVITY URINE AUTO 1.004 (1.002-1.035); SQUAMOUS EPITHELIAL CELL UR AU 0 /HPF (0-6); UROBILINOGEN, URINE AUTO 0.2 mg/dL (0.0-2.0); WBC, URINE AUTO 2 /HPF (0-3)
[2021-02-24 17:40] LABS: HEMATOCRIT 45.3 % (36.0-47.0); HEMOGLOBIN 14.7 g/dl (12.0-15.5); LYMPH % 32.4 % (24.0-44.0); MEAN CORPUSCULAR HEMOGLOBIN 31.1 pg (27.0-33.0); MEAN CORPUSCULAR HGB CONC 32.5 g/dl (32.0-36.5); MEAN CORPUSCULAR VOLUME 95.8 fl (80.0-96.0); MONO % 7.3 % (2.0-8.0); NEUTROPHILS % 56.7 % (36.0-66.0); PLATELET COUNT, AUTOMATED 149 10^3/uL (150-450); RED BLOOD COUNT 4.73 10^6/uL (4.00-5.40); WHITE BLOOD COUNT 4.6 10^3/uL (4.0-10.0)
[2021-02-24 17:41] LABS: BASO % 0.4 % (0.0-1.0); EOS # 0.1 10^3/uL (0.0-0.5); EOS % 2.8 % (0.0-3.0); LYMPH # 1.5 10^3/uL (1.5-5.0); MONO # 0.3 10^3/uL (0.0-0.8); NEUTROPHILS # 2.6 10^3/uL (1.5-8.5)
[2021-02-24 18:02] LABS: CREATININE,RANDOM URINE < 13.0 MG/DL; TOTAL PROTEIN,RANDOM URINE < 5.0 MG/DL (0.0-12.0)
[2021-02-24 19:01] LABS: ALBUMIN 4.2 GM/DL (3.2-5.2); ALT/SGPT 59 U/L (12-78); BILIRUBIN,TOTAL 0.5 MG/DL (0.2-1.0); BLOOD UREA NITROGEN 14 MG/DL (7-18); CALCIUM LEVEL 9.2 MG/DL (8.8-10.2); CARBON DIOXIDE LEVEL 29 MEQ/L (21-32); CHLORIDE LEVEL 105 MEQ/L (98-107); COMPLEMENT C3 133 MG/DL (90-180); COMPLEMENT C4 16 MG/DL (10-40); CREATININE FOR GFR 0.56 MG/DL (0.55-1.30); GLOMERULAR FILTRATION RATE > 60.0 (>39); GLUCOSE, FASTING 130 MG/DL (70-100); POTASSIUM SERUM 3.8 MEQ/L (3.5-5.1); SODIUM LEVEL 140 MEQ/L (136-145); TOTAL PROTEIN 7.9 GM/DL (6.4-8.2)
[2021-02-24 19:44] LABS: ERYTHROCYTE SEDIMENTATION RATE 10 mm/hr (0-30)
== END ==
LOC: M SFHCRHEU 10:37
PROVIDERS: ATTEND Internal Medicine Rheumatology
DX: R76.8 Other specified abnormal immunological findings in serum (principal)

== ENCOUNTER → 2021-02-24 | Outpatient (CLI) | payer MEDICARE ==
--- NOTE | 2021-02-24 12:02 | REP ---
INDICATION: POLYMYALGIA RHEUMATICA COMPARISON: None. TECHNIQUE: AP, lateral, bilateral oblique views right and left foot. FINDINGS: Right foot demonstrates age-related osteopenia and relatively mild/moderate age-related degenerative changes. Lateral view best demonstrates small calcaneal heel spur along with calcifications to the plantar fascia and at the insertion of the Achilles tendon. No acute fracture or dislocation. Left foot demonstrates age-related osteopenia and relatively mild/moderate age-related degenerative changes. Lateral view best demonstrates small calcaneal heel spur along with calcifications to the plantar fascia. No acute fracture or dislocation. IMPRESSION: Osteopenia and relatively symmetric age-related degenerative changes. Calcifications along the bilateral plantar fascia. <Electronically signed by Ervin Francis > 02/24/21 [id number]
--- NOTE | 2021-02-24 12:06 | REP ---
INDICATION: POLYMYALGIA RHEUMATICA COMPARISON: None. TECHNIQUE: AP, lateral, bilateral oblique views right and left hand. FINDINGS: Left hand demonstrates generalized osteopenia and mild to early moderate osteoarthritic changes primarily involving the interphalangeal joints with periarticular sclerosis, marginal spurring and joint space narrowing. No acute fracture or dislocation. Right hand demonstrates generalized osteopenia and mild to moderate osteoarthritic changes including periarticular sclerosis, marginal spurring/osteophyte formation, and joint space narrowing. Findings most pronounced at the 1st and 2nd interphalangeal joints as well as the 1st metacarpophalangeal joint. No acute fracture or dislocation. IMPRESSION: Osteopenia and arthritic degenerative changes (right greater than left).. <Electronically signed by Ervin Francis > 02/24/21 0039
== END ==
LOC: M RAD 11:32
PROVIDERS: ATTEND Internal Medicine Rheumatology
DX: M19.041 Primary osteoarthritis, right hand (principal); M19.042 Primary osteoarthritis, left hand; M85.871 Other specified disorders of bone density and structure, right ankle and foot; M85.872 Other specified disorders of bone density and structure, left ankle and foot; M77.31 Calcaneal spur, right foot; M77.32 Calcaneal spur, left foot; M35.3 Polymyalgia rheumatica; R76.8 Other specified abnormal immunological findings in serum
CPT/HCPCS: 73130; 73630; 80053; 81001; 82570; 84156; 85025; 85652; 86140; 86160; G0463

== ENCOUNTER → 2021-09-16 | Outpatient (CLI) | payer MEDICARE ==
[~2021-09-16] MED LIST changes: -LISI-898 PO; +LISI5TAB11 PO
== END ==
LOC: M WHC 07:37
PROVIDERS: ATTEND Internal Medicine
DX: Z12.31 Encounter for screening mammogram for malignant neoplasm of breast (principal); M89.9 Disorder of bone, unspecified

== ENCOUNTER → 2022-02-14 | Outpatient (REF) | payer MEDICARE ==
[2022-02-14 12:24] LABS: APPEARANCE, URINE MANUAL HAZY (CLEAR); BILIRUBIN, URINE MANUAL NEGATIVE (NEGATIVE); BLOOD URINE MANUAL NEGATIVE (NEGATIVE); COLOR, URINE MANUAL YELLOW (YELLOW); GLUCOSE, URINE (UA) MANUAL NEGATIVE (NEGATIVE); KETONE, URINE MANUAL NEGATIVE (NEGATIVE); LEUKOCYTE ESTERASE, URINE MAN POSITIVE (NEGATIVE); NITRITE, URINE MANUAL NEGATIVE (NEGATIVE); PROTEIN, URINE MANUAL NEGATIVE (NEGATIVE); SPECIFIC GRAVITY,URINE MANUAL 1.015 (1.002-1.035); UROBILINOGEN, URINE MANUAL NORMAL (NORMAL)
[2022-02-14 12:39] LABS: BACTERIA, URINE SMALL AMOUNT; HYALINE CAST, URINE NONE SEEN /lpf (0-1); RBC, URINE NONE SEEN /hpf (0-3); SQUAMOUS EPITHELIAL CELL URINE SMALL AMOUNT /hpf (SMALL AMT)
[2022-02-14 12:40] LABS: AMORPHOUS SEDIMENT, URINE SMALL AMOUNT (NEGATIVE); MUCUS, URINE LARGE AMOUNT (NEGATIVE)
[2022-02-14 13:04] LABS: CREATININE,RANDOM URINE 71.9 MG/DL; TOTAL PROTEIN,RANDOM URINE 10.7 MG/DL (0.0-12.0)
[2022-02-14 13:16] LABS: BASO % 0.8 % (0.0-1.0); EOS # 0.2 10^3/uL (0.0-0.5); EOS % 3.4 % (0.0-3.0); HEMATOCRIT 45.3 % (36.0-47.0); HEMOGLOBIN 14.5 g/dl (12.0-15.5); LYMPH # 1.4 10^3/uL (1.5-5.0); LYMPH % 28.8 % (24.0-44.0); MEAN CORPUSCULAR VOLUME 93.6 fl (80.0-96.0); MONO # 0.4 10^3/uL (0.0-0.8); MONO % 7.7 % (2.0-8.0); NEUTROPHILS # 2.9 10^3/uL (1.5-8.5); NEUTROPHILS % 59.1 % (36.0-66.0); PLATELET COUNT, AUTOMATED 163 10^3/uL (150-450); RED BLOOD COUNT 4.84 10^6/uL (4.00-5.40); WHITE BLOOD COUNT 4.9 10^3/uL (4.0-10.0)
[2022-02-14 14:00] LABS: ALBUMIN 4.3 GM/DL (3.2-5.2); ALT/SGPT 48 U/L (12-78); BILIRUBIN,TOTAL 0.6 MG/DL (0.2-1.0); BLOOD UREA NITROGEN 16 MG/DL (7-18); CALCIUM LEVEL 9.8 MG/DL (8.8-10.2); CARBON DIOXIDE LEVEL 27 MEQ/L (21-32); CHLORIDE LEVEL 103 MEQ/L (98-107); COMPLEMENT C3 126 MG/DL (90-180); COMPLEMENT C4 18 MG/DL (10-40); CREATININE FOR GFR 0.56 MG/DL (0.55-1.30); GLOMERULAR FILTRATION RATE > 60.0 (>39); GLUCOSE, FASTING 140 MG/DL (70-100); POTASSIUM SERUM 4.6 MEQ/L (3.5-5.1); SODIUM LEVEL 134 MEQ/L (136-145); TOTAL PROTEIN 7.9 GM/DL (6.4-8.2)
[2022-02-14 14:33] LABS: ERYTHROCYTE SEDIMENTATION RATE 12 mm/hr (0-30)
== END ==
LOC: M SFHCRHEU 09:08
PROVIDERS: ATTEND Internal Medicine Rheumatology
DX: R76.8 Other specified abnormal immunological findings in serum (principal); M35.3 Polymyalgia rheumatica; R73.01 Impaired fasting glucose

== ENCOUNTER → 2022-03-15 | Outpatient (CLI) | payer MEDICARE | LOC: M WUC 10:39 | PROVIDERS: ATTEND Internal Medicine | DX: R06.00 Dyspnea, unspecified (principal) ==

== ENCOUNTER → 2022-09-19 | Outpatient (CLI) | payer MEDICARE ==
[~2022-09-19] MED LIST changes: +CARB-113 PO; -CARB-89 PO
== END ==
LOC: M WHC 13:21
PROVIDERS: ATTEND Nurse Practitioner Family
DX: Z12.31 Encounter for screening mammogram for malignant neoplasm of breast (principal); Z85.3 Personal history of malignant neoplasm of breast

== ENCOUNTER → 2023-09-21 | Outpatient (CLI) | payer MEDICARE | LOC: M WHC 09:06 | PROVIDERS: ATTEND Internal Medicine | DX: Z12.31 Encounter for screening mammogram for malignant neoplasm of breast (principal) | CPT/HCPCS: 77067; G0279 ==

== ENCOUNTER 2023-11-14 07:23 | Day surgery (SDC) | payer MEDICARE ==
[~2023-11-14] VITALS: Ht 157.5 cm; Wt 83.5 kg
[~2023-11-14 07:23] MED LIST changes: +GABA-1171 PO; +METF500T13 PO; +ROSU5TAB40 PO; +VITA100093 PO; +antihistamine PO; +propofoL 200 MG/20 ML VIAL As Ordered ONE
[2023-11-14] MEDS: NS 1,000 ML IV ONE (07:51)
[2023-11-14 09:18] VITALS: TEMP 97.3
[2023-11-14 09:48] VITALS: BP 175/88; O2SAT 97
== END 2023-11-14 09:59 | disposition home or self-care (01) ==
LOC: M OPP 07:23
PROVIDERS: ATTEND Internal Medicine Gastroenterology
DX: Z12.11 Encounter for screening for malignant neoplasm of colon (principal); Z86.010 Personal history of colon polyps; D12.6 Benign neoplasm of colon, unspecified; D12.0 Benign neoplasm of cecum; K57.30 Diverticulosis of large intestine without perforation or abscess without bleeding; K64.0 First degree hemorrhoids; E11.9 Type 2 diabetes mellitus without complications; I10 Essential (primary) hypertension; E78.00 Pure hypercholesterolemia, unspecified; G47.30 Sleep apnea, unspecified; Z85.3 Personal history of malignant neoplasm of breast; Z79.899 Other long term (current) drug therapy; Z90.710 Acquired absence of both cervix and uterus; Z92.21 Personal history of antineoplastic chemotherapy; Z90.12 Acquired absence of left breast and nipple

== ENCOUNTER → 2024-09-25 | Outpatient (CLI) | payer MEDICARE ==
[~2024-09-25] MED LIST changes: -ROSU5TAB40 PO; +ROSU5TAB49 PO; -propofoL 200 MG/20 ML VIAL As Ordered ONE
== END ==
LOC: M WHC 09:46
PROVIDERS: ATTEND Internal Medicine
DX: Z12.31 Encounter for screening mammogram for malignant neoplasm of breast (principal); Z85.3 Personal history of malignant neoplasm of breast
CPT/HCPCS: 77067; G0279

== ENCOUNTER → 2024-10-06 | Outpatient (REF) | payer MEDICARE ==
[2024-10-06 18:05] LABS: ALBUMIN 4.1 G/DL (3.2-5.2); ALKALINE PHOSPHATASE 150 U/L (35-104); ALT/SGPT 52 U/L (7.0-40); AST/SGOT 38 U/L (<34); BILIRUBIN,TOTAL 0.7 MG/DL (0.3-1.2); BLOOD UREA NITROGEN 15 MG/DL (9-23); CALCIUM LEVEL 9.8 MG/DL (8.3-10.6); CARBON DIOXIDE LEVEL 30 MMOL/L (20-31); CHLORIDE LEVEL 102 MMOL/L (98-107); CREATININE FOR GFR 0.45 MG/DL (0.55-1.30); GLOMERULAR FILTRATION RATE > 60.0 (>39); GLUCOSE, FASTING 166 MG/DL (74-106); POTASSIUM SERUM 4.2 MMOL/L (3.5-5.1); SODIUM LEVEL 138 MMOL/L (136-145)
[2024-10-06 18:07] LABS: BASO % 0.4 % (0.0-1.0); EOS # 0.2 10^3/uL (0.0-0.5); EOS % 2.2 % (0.0-3.0); HEMATOCRIT 44.3 % (36.0-47.0); LYMPH # 1.8 10^3/uL (1.5-5.0); MEAN CORPUSCULAR HEMOGLOBIN 31.3 pg (27.0-33.0); MEAN CORPUSCULAR HGB CONC 33.9 g/dl (32.0-36.5); MEAN CORPUSCULAR VOLUME 92.5 fl (80.0-96.0); MONO # 0.5 10^3/uL (0.0-0.8); MONO % 6.5 % (2.0-8.0); NEUTROPHILS # 4.8 10^3/uL (1.5-8.5); NEUTROPHILS % 65.8 % (36.0-66.0); PLATELET COUNT, AUTOMATED 190 10^3/uL (150-450); RED BLOOD COUNT 4.79 10^6/uL (4.00-5.40); WHITE BLOOD COUNT 7.3 10^3/uL (4.0-10.0)
== END ==
LOC: M LAB REF 17:23 → M LABWUC 17:23
PROVIDERS: ATTEND Internal Medicine
DX: R10.9 Unspecified abdominal pain (principal)